=== PATIENT | female | born 1950 | race Caucasian/White ===

== ENCOUNTER 2022-07-19 13:35 | Outpatient (CLI) | payer MEDICARE ==
[~2022-07-19 13:35] MED LIST: Magnevist 469MG/ML 20 ML VIAL ONE
== END 2022-07-19 13:36 | disposition home or self-care (01) ==
LOC: CSHMRI 13:35
PROVIDERS: ATTEND Psychiatry & Neurology Neurology
DX: R56.9 Unspecified convulsions (principal)
CPT/HCPCS: 70553